=== PATIENT | female | born 1965 | race Caucasian/White ===

== ENCOUNTER 2024-08-23 13:02 | Emergency (ER) | payer BC, SELFPAY ==
[2024-08-23 13:10] VITALS: BP 140/56
[2024-08-23 13:28] LABS: % Basophils 1.2 % (0-2); % Eosinophils 1.6 % (0-6); % Immature Granulocytes 0.2 % (0-0.5); % Lymphocytes 29.2 % (20.5-51.1); % Monocytes 9.7 % (1.7-9.3); % Neutrophils 58.1 % (42.2-75.2); Absolute Basophils 0.1 10^3/uL (0-0.2); Absolute Eosinophils 0.1 10^3/uL (0-0.7); Absolute Lymphocytes 1.4 10^3/uL (1.2-3.4); Absolute Monocytes 0.5 10^3/uL (0.1-0.6); Absolute Neutrophils 2.9 10^3/uL (1.4-6.5); Hematocrit 39.9 % (37.0-47.0); Hemoglobin 12.3 g/dL (12.0-16.0); Mean Corp Hgb Conc. 30.8 g/dL (33.0-37.0); Mean Corpuscular Hgb 28.4 pg (27.0-31.0); Mean Corpuscular Volume 92.1 fL (81.0-99.0); Mean Platelet Volume 9.1 fL (7.4-10.4); Nucleated Red Blood Cells % 0 %; Platelet Count 275 10^3/uL (130-400); Red Blood Cell Count 4.33 10^6/uL (4.20-5.40); Red Cell Dist. Width 12.2 % (11.5-14.5); White Blood Cell Count 4.9 10^3/uL (4.8-10.8)
[2024-08-23 13:52] LABS: ALT (SGPT) 17 U/L (0-35); AST (SGOT) 21 U/L (14-36); Albumin 4.2 g/dl (3.5-5.0); Alkaline Phosphatase 78 U/L (38-126); Blood Urea Nitrogen 15 mg/dl (7-17); Calcium 9.6 mg/dl (8.4-10.2); Carbon Dioxide 34 mmol/L (22-30); Chloride 101 mmol/L (98-107); Glucose 67 mg/dl (70-99); Sodium 141 mmol/L (135-145); Total Bilirubin 0.4 mg/dl (0.2-1.3); Total Protein 6.6 g/dl (6.3-8.2); eGFR > 60.00
[2024-08-23 14:03] LABS: Troponin I < 0.012 ng/ml
--- NOTE | 2024-08-23 14:55 | ED.GENMED ---
History of Present Illness
General
Chief Complaint: Chest Pain
Source: patient
Exam Limitations: none
Time Seen by Provider: 08/23/24 14:40
Nursing documentation reviewed up to this point in time: agreed with
History of Present Illness
History of Present Illness:
59 yo female with h/o GERD, Rosendo's thyroiditis, seizure hx, presents for chest pain.
States yesterday upon awakening she had left sided chest pain as well as left upper back pain and neck pain. She thought it was her GERD so she did take her Prilosec last evening as well as Mylanta with no relief. This morning she still felt some
areas of pain in the left side, the left mid to upper back and some in the right upper back which she describes as sharp intermittent pains worse with certain movements. She has been sleeping differently on 2 pillows instead of 1 starting a week
ago and she feels that this may be contributing to her symptoms. She also states her neck has been bothering her for the past 2 weeks.
This morning she took Prilosec and Mylanta again and she states that these have not improved her symptoms. She states she has a generalized headache since this morning has taken nothing for it, she states the headache is 4/10.
She states she has no chest pain now but has sharp pains in the right side under the axilla and in the mid to upper left chest and some in the right upper chest area.
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
Denies n/v/d/c.
She's also had a cough for two months, saw PCP who put her on Prilosec and told her if the cough continues she will need a CXR. She states the cough is much improved but still there.
Past History
Past History
ED Past Medical History: GERD, Seizures and Hypothyroidism (Hoshimoto's)
ED Past Surgical History: Tonsilectomy
Social History
Tobacco: Non-smoker
Alcohol: None
Personal: Single
Living: alone
Employment: Employed
Review of Systems
Review of Systems
Allergies reviewed?: Yes
All Other Systems: ROS reviewed and negative except as documented in HPI and ROS
Constitutional: Denies fever, fatigue or chills
EENT: Denies sore throat
Respiratory: Reports cough; Denies trouble breathing
Cardiac: Reports chest pain; Denies diaphoresis or palpitations
ABD/GI: Denies abdominal pain, nausea, vomiting, diarrhea or anorexia
: Denies dysuria, frequency, flank pain, difficulty voiding or urgency
Musculoskeletal: Reports neck pain and back pain; Denies edema
Skin: Reports no symptoms
Neurological: Reports headache; Denies dizzy, weakness or numbness
Phy Exam
Physical Exam
Physical Exam:
GENERAL: No acute distress. A&Ox3.
CONSTITUTIONAL: Afebrile.
EYES: clear, conjunctivae normal
Neck: Supple
ENMT: moist mucus membranes, Pharynx nl
RESPIRATORY: Regular respirations, nonlabored, lungs clear.
CARDIOVASCULAR: Regular rate and rhythm, no murmurs, no rubs.
GI: Soft, nontender, normal BS
MUSCULOSKELETAL: Moves with ease. Well perfused. Palpation, massage of muscles of upper back, neck left side immediately reproduce symptoms.
SKIN: Warm, dry, pink
PSYCH: Normal mood and affect. Well kept, interactive and appropriate
NEUROLOGIC: Awake, alert and oriented. No focal neurological deficits
Scores
Heart Score for Chest Pain Patients
STEMI patient?: Not applicable
Course
Orders/Labs/Results
Orders:
Orders
08/23/24 13:04
Electrocardiogram (*1) Urgent
Reason for Study: Chest Pain
08/23/24 13:05
EKG- Treatment ONCE
08/23/24 13:17
Complete Blood Count/With Diff Urgent
Comprehensive Metabolic Panel Urgent
Troponin I Urgent
08/23/24 14:55
CR Chest - 2 Views Urgent
Comment:
Reason For Exam: chest pain
Abnormal Lab Results
08/23/24
13:17
MCHC 30.8 L g/dL
(33.0-37.0)
Monocytes % 9.7 H %
(1.7-9.3)
Carbon Dioxide 34 H mmol/L
(22-30)
Glucose 67 L mg/dl
(70-99)
08/23/24 13:17
08/23/24 13:17
Vital Signs
Initial and Last Documented VS:
Initial Vital Signs
Temp
98.7 F
08/23/24 13:08
Last Documented Vital Signs
Temp Pulse Resp BP Pulse Ox
98.7 F 70 18 110/60 98
08/23/24 13:08 08/23/24 16:38 08/23/24 16:38 08/23/24 16:38 08/23/24 16:38
MDM/Problems Addressed
Differential Diagnosis Includes:
stress, muscle back and neck pain, DE
MDM/Problems Addressed:
59 yo female with h/o GERD, Rosendo's thyroiditis, seizure hx, presents for chest pain.
States yesterday upon awakening she had left sided chest pain as well as left upper back pain and neck pain. She thought it was her GERD so she did take her Prilosec last evening as well as Mylanta with no relief. This morning she still felt some
areas of pain in the left side, the left mid to upper back and some in the right upper back which she describes as sharp intermittent pains worse with certain movements. She has been sleeping differently on 2 pillows instead of 1 starting a week
ago and she feels that this may be contributing to her symptoms. She also states her neck has been bothering her for the past 2 weeks.
This morning she took Prilosec and Mylanta again and she states that these have not improved her symptoms. She states she has a generalized headache since this morning has taken nothing for it, she states the headache is 4/10.
She states she has no chest pain now but has sharp pains in the right side under the axilla and in the mid to upper left chest and some in the right upper chest area.
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
Denies n/v/d/c.
She's also had a cough for two months, saw PCP who put her on Prilosec and told her if the cough continues she will need a CXR. She states the cough is much improved but still there.
Afebrile, NAD
EKG NSR
Lungs CTA, no cough noted
3:00 p.m.
CBC normal
CMP normal
Troponin normal
muscles of neck and back are tight, she she states her pain is worse when massaged/palpated by this examiner. Exam consistent with musculoskeletal pain, stress most likely source, she admits she has not been sleeping well, lot of stress at work.
CXR:NAD
Pt stable for discharge
*Critical Care Note
Total Time (30-74mins, 75-104mins- exclusive of procedures): Not Applicable
ED Attending Note
-
Portions of this chart may have been created with voice recognition software.� Occasional wrong word or��sound alike� substitutions may have occurred due to the inherent limitations of voice recognition software.
Discharge Plan
Departure
Patient Disposition: Home (Routine Discharge)
Date of Disposition: 08/23/24
Time of Disposition: 15:55
Patient with high blood pressure during this ER visit?: No
Condition: Good
Discharge Problem:
Atypical chest pain
Instructions: Chest Pain That Is Not Caused by the Heart (DC), Acid Reflux and GERD in Adults (DC), Stress, Muscle and bone pain - Discharge instructions
Referrals:
Luis Christine IV, DO [Family Provider] - Call in 1-3 days for appt
Activity Restrictions/Additional Instructions:
As we discussed, your workup here today shows nothing worrisome. Specifically, no sign of your heart being the cause of your symptoms.
Your chest xray is clear
It sounds like you are under a lot of stress and your symptoms may be due to musculoskeletal pain due to neck and back reaction to your stress.
Ibuprofen 600 mg (with food) every 6 hours as needed for chest wall, neck and back pain
Heating pad may help
Continue your Prilosec
Interventions
Interventions:
*Risk Screen - Suicide Last Done: 08/23/24 13:10
*General Assessment Last Done: 08/23/24 15:07
*Neglect/Abuse Screening Last Done: 08/23/24 13:10
*ED COVID-19 Vaccine History Last Done: 08/23/24 15:08
*Nursing Disposition Last Done: 08/23/24 16:38
ED- Cardiac Assessment Last Done: 08/23/24 15:05
Discharge Date and Time
Discharge Date/Time: 08/23/24 16:39
Print Language: POLISH
[2024-08-23 15:05] VITALS: BP 106/56
[2024-08-23 16:38] VITALS: BP 110/60
== END 2024-08-23 16:39 | disposition home or self-care (01) ==
LOC: EMR 13:02
PROVIDERS: Student in an Organized Health Care Education/Training Program; EMERGENCY PHYSICIAN Emergency Medicine; FAMILY PHYSICIAN Family Medicine
DX: R07.89 Other chest pain (principal); K21.9 Gastro-esophageal reflux disease without esophagitis; E06.3 Autoimmune thyroiditis; Z56.6 Other physical and mental strain related to work
CPT/HCPCS: 99285; 71046; 80053; 84484; 85025; 93005